=== PATIENT | male | born 1970 | race African-American/Black ===

== ENCOUNTER 2017-03-11 11:05 | Emergency (ER) | payer OTHER ==
[~2017-03-11] VITALS: Ht 193 cm; Wt 90.7 kg
[~2017-03-11 11:05] MED LIST: ZITHROMAX250 MG PO
[2017-03-11 11:16] VITALS: BP 149/81
[2017-03-11] MEDS ORDERED: NKM (11:19)
[2017-03-11] MEDS ORDERED: Ketorolac 60mg Inj IM ONE (11:30)
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
[2017-03-11] MEDS ORDERED: ACETAMINOPHEN-1 EAC1 ORAL (12:08)
[2017-03-11] MEDS ORDERED: ROBAXIN-750750 MG PO (12:08)
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
[2017-03-11 13:25] VITALS: BP 149/95
== END 2017-03-11 13:25 | disposition home or self-care (01) ==
LOC: EMR 11:45
DX: S16.1XXA Strain of muscle, fascia and tendon at neck level, initial encounter (principal); V49.40XA Driver injured in collision with unspecified motor vehicles in traffic accident, initial encounter; Y92.414 Local residential or business street as the place of occurrence of the external cause; M50.30 Other cervical disc degeneration, unspecified cervical region; R51 Headache
CPT/HCPCS: 70450; 72125; 99284